=== PATIENT | female | born 1970 | race Caucasian/White ===

== ENCOUNTER 2020-12-07 14:13 | Emergency (ER) | payer BC ==
--- NOTE | 2020-12-07 14:39 | EDM.PDOC ---
ED HPI GENERAL MEDICAL PROBLEM - General Chief Complaint: General Stated Complaint: RACING HEART Time Seen by Provider: 12/07/20 14:35 Source of Information: Reports: Patient, RN. Denies: Old Records History Limitations: Reports: Other (no old records) - History of Present Illness INITIAL COMMENTS - FREE TEXT/NARRATIVE: 49 yo female presents with a complaint of shakiness and mild weakness with onset last morning today. She has had a couple of loose stools. No fever. No cough or SOB. No CP. No chills. No nausea. Says she doesn't feel right. Doesn't think she's drank much today. Has been light-headed. Had not eaten today until lunch which was about an hour later than she normally eats. Onset: Today, Unknown/Unsure Onset Date: 12/07/20 Onset Time: 10:30 Duration: Hour(s):, Waxing/Waning Location: Reports: Generalized Quality: Reports: Other (no pain) Severity: Mild Improves with: Reports: Other (unsure) Worsens with: Reports: Other (unknown) Context: Reports: Other (See HPI) Associated Symptoms: Reports: Weakness (mild). Denies: Chest Pain, Cough, Diaphoresis, Fever/Chills, Nausea/Vomiting, Shortness of Breath Treatments CHILD CARE: Reports: Other (see below) (none) - Related Data Allergies Allergy/AdvReac Type Severity Reaction Status Date / Time No Known Allergies Allergy Verified 12/07/20 15:09 ED ROS GENERAL - Review of Systems Review Of Systems: See Below Constitutional: Reports: Malaise, Weakness (mild, generalized) HEENT: Reports: No Symptoms Respiratory: Reports: No Symptoms Cardiovascular: Reports: Palpitations (? heart beating a little faster than normal at home today.) Endocrine: Reports: No Symptoms GI/Abdominal: Reports: Diarrhea (x 2). Denies: Black Stool, Bloody Stool, Distension, Hematemesis, Hematochezia, Melena, Nausea, Vomiting : Reports: No Symptoms Musculoskeletal: Reports: No Symptoms Skin: Reports: No Symptoms Neurological: Reports: Tremors (feels a little shakey) Psychiatric: Reports: Anxiety (under more stress than usual lately) ED EXAM, GENERAL - Physical Exam Exam: See Below Exam Limited By: No Limitations General Appearance: Alert, WD/WN, No Apparent Distress Eye Exam: Bilateral Eye: Normal Inspection Ears: Normal External Exam, Normal Canal, Hearing Grossly Normal Ear Exam: Bilateral Ear: Auricle Normal, Canal Normal Nose: Normal Inspection, No Blood Throat/Mouth: Normal Inspection, Normal Lips, Normal Oropharynx, Normal Voice, No Airway Compromise Head: Atraumatic, Normocephalic Neck: Normal Inspection Respiratory/Chest: No Respiratory Distress, Lungs Clear, Normal Breath Sounds, No Accessory Muscle Use Cardiovascular: Regular Rate, Rhythm, No Edema. No: Tachycardia, Irregularly Irregular GI/Abdominal: Soft, Non-Tender, No Distention. No: Distended, Tender Extremities: Normal Inspection, Normal Range of Motion, Non-Tender, No Pedal Edema. No: Pedal Edema Neurological: Alert, Oriented, CN II-XII Intact, Normal Cognition, No Motor/Sensory Deficits Psychiatric: Normal Affect, Normal Mood Skin Exam: Warm, Dry, Intact, Normal Color, No Rash #1 Interpretation EKG Date: 12/07/20 Time: 14:25 Rhythm: NSR Rate (Beats/Min): 89 [place]: Normal P-Wave: Present QRS: Normal ST-T: Normal QT: Normal Comparison: NA - No Prior EKG Course - Vital Signs Text/Narrative:: orthostats normal Last Recorded V/S: Last Vital Signs Temp 37.4 C 12/07/20 14:13 Pulse 102 H 12/07/20 14:13 Resp 18 12/07/20 14:13 BP 147/91 H 12/07/20 14:13 Pulse Ox 100 12/07/20 14:13 Orthostatic Blood Pressure [ 139/92 Standing] Orthostatic Blood Pressure [ 145/88 Sitting] Orthostatic Blood Pressure [ 148/94 Supine] - Orders/Labs/Meds Orders: Active Orders 24 hr Category Date Time Status Cardiac Monitoring [RC] .As Directed Care 12/07/20 14:18 Active Orthostatic Vital Signs [RC] ASDIRECTED Care 12/07/20 14:44 Active CORONAVIRUS (COVID19) [facility] Routine Lab 12/07/20 14:50 Received EKG 12 Lead [EK] Routine Ther 12/07/20 14:37 Ordered Labs: Laboratory Tests 12/07/20 12/07/20 12/07/20 Range/Units 14:50 15:15 15:15 WBC 5.6 (3.0-10.3) x10-3/uL RBC 4.37 (3.60-5.20) x10(6)uL Hgb 13.2 (11.4-15.5) g/dL Hct 39.5 (34.2-48.2) % MCV 90.4 (76.7-100.5) fL MCH 30.3 (23.9-33.9) pg MCHC 33.5 (31.9-34.8) g/dL RDW 12.6 (12.3-16.5) % Plt Count 257 (151-488) x10(3)uL Sodium 147 H (135-145) mmol/L Potassium 4.1 (3.5-5.3) mmol/L Chloride 108 (100-110) mmol/L Carbon Dioxide 30 (21-32) mmol/L BUN 12 (7-18) mg/dL Creatinine 0.9 (0.55-1.02) mg/dL Est Cr Clr Drug Dosing 63.86 mL/min Estimated GFR (MDRD) > 60 (>60) BUN/Creatinine Ratio 13.3 (9-20) Glucose 106 (80-116) mg/dL Calcium 8.8 (8.6-10.2) mg/dL TSH, Ultra Sensitive (0.36-3.74) IU/mL Urine Color Yellow (YELLOW) Urine Appearance Clear (CLEAR) Urine pH 7.0 H (5.0-6.5) Ur Specific [place] 1.010 (1.010-1.025) Urine Protein Negative (NEGATIVE) mg/dL Urine Glucose (UA) Normal (NORMAL) mg/dL Urine Ketones Negative (NEGATIVE) mg/dL Urine Occult Blood Negative (NEGATIVE) Urine Nitrite Negative (NEGATIVE) Urine Bilirubin Negative (NEGATIVE) Urine Urobilinogen Normal (NEGATIVE) mg/dL Ur Leukocyte Esterase Small H (NEGATIVE) Urine WBC 5-10 H (0-5) Ur Squamous Epith Cells Occasional (NS,R,O) Urine Bacteria Few H (NS) 12/07/20 Range/Units 15:15 WBC (3.0-10.3) x10-3/uL RBC (3.60-5.20) x10(6)uL Hgb (11.4-15.5) g/dL Hct (34.2-48.2) % MCV (76.7-100.5) fL MCH (23.9-33.9) pg MCHC (31.9-34.8) g/dL RDW (12.3-16.5) % Plt Count (151-488) x10(3)uL Sodium (135-145) mmol/L Potassium (3.5-5.3) mmol/L Chloride (100-110) mmol/L Carbon Dioxide (21-32) mmol/L BUN (7-18) mg/dL Creatinine (0.55-1.02) mg/dL Est Cr Clr Drug Dosing mL/min Estimated GFR (MDRD) (>60) BUN/Creatinine Ratio (9-20) Glucose (80-116) mg/dL Calcium (8.6-10.2) mg/dL TSH, Ultra Sensitive 1.14 (0.36-3.74) IU/mL Urine Color (YELLOW) Urine Appearance (CLEAR) Urine pH (5.0-6.5) Ur Specific [place] (1.010-1.025) Urine Protein (NEGATIVE) mg/dL Urine Glucose (UA) (NORMAL) mg/dL Urine Ketones (NEGATIVE) mg/dL Urine Occult Blood (NEGATIVE) Urine Nitrite (NEGATIVE) Urine Bilirubin (NEGATIVE) Urine Urobilinogen (NEGATIVE) mg/dL Ur Leukocyte Esterase (NEGATIVE) Urine WBC (0-5) Ur Squamous Epith Cells (NS,R,O) Urine Bacteria (NS) - Re-Assessments/Exams Free Text/Narrative Re-Assessment/Exam: 12/07/20 15:59 Sx's resolved shortly after arrival. Departure - Departure Time of Disposition: 16:00 Disposition: Home, Self-Care 01 Condition: Good Clinical Impression: Shakiness - Discharge Information *PRESCRIPTION DRUG MONITORING PROGRAM REVIEWED*: Not Applicable *COPY OF PRESCRIPTION DRUG MONITORING REPORT IN PATIENT SAY: Not Applicable Referrals: Romy Seth NP [Primary Care Provider] - Forms: ED Department Discharge Additional Instructions: If you feel this way again eat and give it about 30 minutes before you come in. Take your labs along to your next doctor's visit. Sepsis Event Note (ED) - Focused Exam Vital Signs: Vital Signs Temp Pulse Resp BP Pulse Ox 12/07/20 14:13 37.4 C 102 H 18 147/91 H 100 - My Orders Last 24 Hours: My Active Orders 12/07/20 14:18 Cardiac Monitoring [RC] .As Directed 12/07/20 14:37 EKG 12 Lead [EK] Routine 12/07/20 14:44 Orthostatic Vital Signs [RC] ASDIRECTED 12/07/20 14:50 CORONAVIRUS (COVID19) [facility] Routine - Assessment/Plan Last 24 Hours: My Active Orders 12/07/20 14:18 Cardiac Monitoring [RC] .As Directed 12/07/20 14:37 EKG 12 Lead [EK] Routine 12/07/20 14:44 Orthostatic Vital Signs [RC] ASDIRECTED 12/07/20 14:50 CORONAVIRUS (COVID19) [facility] Routine
[2020-12-09 19:58] LABS: CORNONAVIRUS (COVID19) CSH-NRL Negative (Negative)
== END 2020-12-07 16:30 | disposition home or self-care (01) ==
LOC: FB.ED 14:13
DX: R25.1 Tremor, unspecified (principal); Z20.822 Contact with and (suspected) exposure to COVID-19
CPT/HCPCS: 36415; 80048; 81001; 84443; 85027; 93005; 99285-25; U0003